=== PATIENT | female | born 2005 | race Caucasian/White ===

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

== ENCOUNTER 2023-09-15 20:29 | Emergency (ER) | payer OTHER, SELFPAY ==
[2023-09-15 20:31] VITALS: BP 124/72; PULSE 100; RESP 14; TEMP 36.7; O2SAT 100
[2023-09-15] MEDS: diphenhydrAMINE HCl INJ 50 MG/ML VIAL 25 MG IV PUSH (21:04)
[2023-09-15] MEDS: FAMOTIDINE 20 MG/2 ML VIAL IV PUSH (21:06)
[2023-09-15] MEDS: methylPREDNISolone SOD SUCC 125 MG VIAL IV PUSH (21:08)
--- NOTE | 2023-09-15 22:33 | ED.ALLEREA ---
HPI - Allergic Reaction General Chief complaint: Allergic Reaction Stated complaint: allergic reaction to face Time Seen by Provider: 09/15/23 20:38 History of Present Illness HPI narrative: This is a 18-year-old female, who denies significant past medical history, presenting to the emergency department with concern for allergic reaction on the face. She states that around 19:00 this evening, she felt some itching under the left eye and he noticed spreading redness of the face. She denies difficulty breathing, difficulty swallowing, vomiting or diarrhea. She denies new foods, soaps, detergents or lotions. Related Data Home Medications Medication Instructions Recorded Confirmed norethindrone acetate 1 mg-ethinyl 1 tablet PO DAILY 01/08/22 08/27/22 estradiol 20 mcg tablet Allergies Allergy/AdvReac Type Severity Reaction Status Date / Time No Known Allergies Allergy Verified 08/27/22 12:52 Review of Systems Review of Systems: CONSTITUTIONAL: Denies fever, chills, or sweats. CARDIOVASCULAR: Denies chest pain, palpitations, or edema. RESPIRATORY: Denies cough or dyspnea. GASTROINTESTINAL: Denies abdominal pain, nausea, vomiting, or diarrhea. GENITOURINARY: Denies dysuria or hematuria. SKIN: Erythema and itching of the face MUSCULOSKELETAL: Denies back pain, joint pain, or myalgia. NEUROLOGIC: Denies headache, numbness, dizziness, or weakness. PSYCHIATRIC: Denies anxiety or depression. PMFSH Past Medical History Medical History (Updated 09/16/23 @ 01:56 by Ken Toth MD) No significant past medical history Surgical History Surgical History (Updated 09/16/23 @ 01:53 by Ken Toth MD) No significant past surgical history Social History Social History (Updated 09/16/23 @ 01:53 by Ken Toth MD) Smoking status: Current every day smoker Tobacco type: e-cigarettes/vaping Alcohol intake: current Substance use: never Exam Narrative: GENERAL: Well-developed, well-nourished, and in no acute distress. HEAD: Normocephalic, atraumatic. EYES: PERRLA and EOMI. NECK: Supple. No stridor CHEST: Clear to auscultation. No respiratory distress. No wheezes rales or rhonchi HEART: Regular rate and rhythm. No murmur heard. Normal peripheral pulses. ABDOMEN: Soft, nontender, nondistended, normal active bowel sounds. SKIN: Erythema and mild induration of the face primarily over the bilateral cheeks. Skin otherwise warm, dry, no rash. NEURO: Alert and oriented x3. No focal deficit. Moving all 4 limbs spontaneously PSYCH: Normal mood and affect. Course Course Emergency Course: 22:30 - On re-evaluation after her IV Solu-Medrol, Pepcid and diaphragm Hydrea main, the patient's swelling and itching has significantly improved. Will discharge with oral antibiotics and steroids and recommendation for primary care follow-up. Discussed return and emergency precautions including signs/symptoms of anaphylaxis. The patient voiced understanding and is comfortable with the plan. All questions answered to her satisfaction. Vital Signs Vital signs: Vital Signs Temperature 98.0 F 09/15/23 20:31 Pulse Rate 100 09/15/23 20:31 Respiratory Rate 14 09/15/23 20:31 Blood Pressure 124/72 09/15/23 20:31 Pulse Oximetry 100 09/15/23 20:31 Oxygen Delivery Room Air 09/15/23 20:31 Temperature 98.0 F 09/15/23 20:31 Pulse Rate 71 09/15/23 22:41 Respiratory Rate 16 09/15/23 22:41 Blood Pressure 114/70 09/15/23 22:41 Pulse Oximetry 100 09/15/23 22:41 Oxygen Delivery Room Air 09/15/23 20:31 MDM - Allergic Reaction MDM Narrative Medical decision making narrative: Plan: Steroids, antihistamines, reassess Differential Diagnosis Differential diagnosis: Likely allergic reaction, contact dermatitis, urticaria and other Discharge Plan Discharge Clinical Impression: Urticaria Allergic reaction Qualifiers: Encounter type: initial encounter Qualified C
[2023-09-15 22:41] VITALS: BP 114/70; PULSE 71; RESP 16; O2SAT 100
== END 2023-09-15 22:41 | disposition home or self-care (01) ==
PROVIDERS: Emergency Provider Preventive Medicine Aerospace Medicine
DX: L50.9 Urticaria, unspecified (principal); T78.40XA Allergy, unspecified, initial encounter; F17.290 Nicotine dependence, other tobacco product, uncomplicated
CPT/HCPCS: 96374; 96375; 99284; J1200; J2930

== ENCOUNTER 2025-05-27 09:21 | Emergency (ER) | payer OTHER, SELFPAY ==
[2025-05-27 09:36] VITALS: BP 105/75; PULSE 111; RESP 18; TEMP 36.4; O2SAT 100
--- NOTE | 2025-05-27 10:10 | ED.EAR ---
HPI - Ear Problem General Chief complaint: Ear Stated complaint: Ear Pain Time Seen by Provider: 05/27/25 10:04 Source: patient and RN notes reviewed Mode of arrival: ambulatory Limitations: no limitations History of Present Illness HPI Narrative: Patient presents today complaining of left ear pain and muffling since yesterday. Denies any additional symptoms to include fever, drainage, cough, nasal congestion. Currently rates her pain 5/10 and has tried no OTC treatment prior to arrival. She has been swimming recently. Related Data Home Medications ?Medication ?Instructions ?Recorded ?Confirmed ?Last Taken ?Type sumatriptan succinate 100 mg tablet mg PO 06/18/24 04/07/25 Unknown History spironolactone 25 mg tablet mg PO 02/18/25 04/07/25 Unknown History levonorgestrel (Mirena) 1 device intrauterine ONCE 04/07/25 05/27/25 Unknown History Allergies Allergy/AdvReac Type Severity Reaction Status Date / Time No Known Allergies Allergy Verified 05/27/25 09:35 [facility] Past Medical History Medical History Migraines High cholesterol No significant past medical history Surgical History Surgical History Encounter for insertion of Mirena IUD 03/17/2025 No significant past surgical history Family History Family History Father Cerebrovascular accident Lung cancer Other Breast cancer great grandmother (BRCA+) Cerebrovascular accident Social History Social History Smoking status: Former smoker Tobacco type: e-cigarettes/vaping Alcohol intake: current Alcohol use details: occasional Substance use: never Substance use type: does not use Do You Feel Safe in your Home?: Yes Lack of Transportation: No Lack of Food: Never True Current Housing: I Have Housing Concerned About Future Housing: No Difficulty Paying Gas/Electric Bills: No Difficulty Paying for Meds: No Currently Unemployed: No Education: High School Diploma/GED Difficulty w/ Childcare or Family Care: No Living arrangements: other Additional living arrangements comments: SO Occupation/Education: student Additional occupation/education comments: also employed, [employer] Gender identity (if verbalized by the patient): Female Sexual Orientation (if Verbalized by the Patient): Straight or Heterosexual Comments Reviewed Exam Narrative: GENERAL: Well-appearing, well-nourished, and in no acute distress. HEAD: Normocephalic, atraumatic. EYES: EOMI. No redness or drainage. Conjunctivae normal. ENT: Mucous membranes pink and moist. Nares clear. No rhinorrhea. Right ear normal. Left ear:+ movement tenderness. No tragal tenderness. Ear canal is very mildly erythematous without edema, drainage, or debris. TM is injected. NECK: Normal AROM. Supple. No lymphadenopathy. CHEST: No respiratory distress. EXTREMITIES: Normal range of motion. No edema. SKIN: Warm, dry, no rash. Capillary refill normal. Normal skin turgor. NEURO: No focal deficits. Alert and oriented x3. Gait steady. PSYCH: Normal affect. No signs of depression or anxiety. Course Course Level of Care: Express Care Visit Vital Signs Vital signs: Vital Signs Temperature 97.6 F 05/27/25 09:36 Pulse Rate 111 H 05/27/25 09:36 Respiratory Rate 18 05/27/25 09:36 Blood Pressure 105/75 05/27/25 09:36 Pulse Oximetry 100 05/27/25 09:36 Temperature 97.6 F 05/27/25 09:36 Pulse Rate 111 H 05/27/25 09:36 Respiratory Rate 18 05/27/25 09:36 Blood Pressure 105/75 05/27/25 09:36 Pulse Oximetry 100 05/27/25 09:36 Reviewed Medical Decision Making [facility] Narrative Medical decision making narrative: 20-year-old female patient presents with left ear pain since yesterday with muffled hearing. Denies any additional symptoms. No OTC treatment. Upon exam, patient has some movement tenderness and mildly erythematous canal as well son injected TM on the left. Right TM normal. She will be treated with amoxicillin and Ciprodex for both mild otitis media and otitis externa. Patient agrees with plan. Vital signs stable. Anticipatory guidance given. Differential Diagnosis Differential Diagnosis: Otitis media, otitis externa, ruptured TM, serous otitis, cerumen impaction, URI Vital Signs Vital Signs: Vital Signs Temperature 97.6 F 05/27/25 09:36 Pulse Rate 111 H 05/27/25 09:36 Respiratory Rate 18 05/27/25 09:36 Blood Pressure 105/75 05/27/25 09:36 Pulse Oximetry 100 05/27/25 09:36 Temperature 97.6 F 05/27/25 09:36 Pulse Rate 111 H 05/27/25 09:36 Respiratory Rate 18 05/27/25 09:36 Blood Pressure 105/75 05/27/25 09:36 Pulse Oximetry 100 05/27/25 09:36 Critical Care Time Critical Care Time Critical Care Time: No Discharge Plan Discharge Clinical Impression: Otitis externa Qualifiers: Otitis externa type: unspecified type Chronicity: acute Laterality: left Qualified Code(s): H60.502 - Unspecified acute noninfective otitis externa, left ear Otitis media Qualifiers: Otitis media type: unspecified Chronicity: acute Qualified Code(s): H66.90 - Otitis media, unspecified, unspecified ear Patient Disposition: Home Condition: Stable Instructions: Antibiotic Form, Swimmer's Ear (ED), Ear Infection (ED) Additional Instructions: Please take the amoxicillin and use the ear drops as directed. Try to keep ears dry as possible for the next week. Follow-up with your PCP next week if symptoms are not improving. Take Tylenol or ibuprofen for pain if needed. Patient Language: Japanese Prescriptions: New amoxicillin 875 mg tablet 875 mg PO Q12H 7 Days Qty: 14 0RF ciprofloxacin-dexamethasone 0.3-0.1 % drops,suspension 4 drp LEFT EAR Q12H 7 Days Qty: 7.5 0RF No Action fluticasone propionate [Flonase Allergy Relief] 50 mcg/actuation spray,suspension 2 spray NASAL DAILY Qty: 15.8 0RF Rx Instructions: administer into each nostril Mirena 21 mcg/24hr (up to 8 yrs) 52 mg intrauterine device 1 device intrauterine ONCE Rx Instructions: as a single dose sumatriptan succinate 100 mg tablet PO spironolactone 25 mg tablet PO Follow-up/Referrals: PHYSICIAN,PHYSICIAN PRACTICE COORDINATOR [Primary Care Provider, Internal Medicine] Stand Alone Forms: Work/School Release IP Time of Disposition: 10:16
== END 2025-05-27 10:21 | disposition home or self-care (01) ==
PROVIDERS: Emergency Provider Nurse Practitioner
DX: H60.502 Unspecified acute noninfective otitis externa, left ear (principal); H66.92 Otitis media, unspecified, left ear; E78.00 Pure hypercholesterolemia, unspecified; Z97.5 Presence of (intrauterine) contraceptive device; Z87.891 Personal history of nicotine dependence
CPT/HCPCS: 99213; G0463